=== PATIENT | female | born 1930 | race Caucasian/White ===

== ENCOUNTER 2016-12-06 22:08 | Inpatient (IN) | payer OTHER ==
[~2016-12-06] VITALS: Ht 162.6 cm; Wt 62.9 kg
[~2016-12-06 22:08] MED LIST: ASPIR 8181 M1 PO; ASPIRIN81 M2 PO; BACK & BODY PA1 EACH PO; CALCIUM 600 MG1 EACH PO; CELECOXIB200 MG PO; COREG6.25 M1 PO; ENDOCET 5-3251 EACH PO; IRON325 MG PO; LIDOCAINE700 MG TD; LOVENOX40 MG/0.4 SC; METFORMIN HCL500 MG PO; MULTIPLE VITAM1 EACH PO; PROTONIX40 MG PO; ZOCOR10 MG PO
[2016-12-07 07:33] VITALS: BP 177/80
[2016-12-07 08:00] LABS: POINT-OF-CARE METER ID UU14174212
[2016-12-07 11:19] LABS: POINT-OF-CARE METER ID UU13113675
[2016-12-07 13:22] LABS: HEMATOCRIT 37.9 % (36.0-46.0); MCH 28.8 PG (29.0-34.0); MCHC 31.4 G/DL (30.0-36.0); MCV 91.8 FL (83-99); MEAN PLAT.VOLUME 10.8 uM^3 (9.5-12.4); PLATELET COUNT 187 K/uL (156-360); RBC DIS.WIDTH-CV 14.2 % (11.8-14.6); RBC DIS.WIDTH-SD 47.9 % (39-53); RED BLOOD COUNT 4.13 M/uL (3.80-5.20); WHITE BLOOD COUNT 4.5 K/uL (4.1-10.2)
[2016-12-07 16:25] VITALS: BP 128/74
[2016-12-07 16:32] LABS: POINT-OF-CARE METER ID UU13113712
[2016-12-07 19:56] VITALS: BP 127/72
[2016-12-07 21:23] LABS: POINT-OF-CARE METER ID UU13113712
[2016-12-08 00:07] VITALS: BP 169/73
[2016-12-08 04:15] VITALS: BP 160/76
[2016-12-08 07:03] LABS: HEMATOCRIT 40.5 % (36.0-46.0); MCV 91.4 FL (83-99)
[2016-12-08 07:27] LABS: ANION GAP 12 MEQ/L (2-14); CHLORIDE 94 MEQ/L (99-109); GFR ESTIMATE (CALCULATED) 56 mL/min/; GLUCOSE 201 mg/dL (70-99); SAMPLE HEMOLYSIS CHECK 0; SAMPLE ICTERIC CHECK 0; SAMPLE LIPEMIA CHECK 0; SODIUM 131 MEQ/L (136-147); UREA NITROGEN (BUN) 19 mg/dL (9-23)
[2016-12-08 07:43] LABS: POINT-OF-CARE METER ID UU13113712
[2016-12-08 07:44] VITALS: BP 122/80
[2016-12-08 12:01] VITALS: BP 165/74
[2016-12-08 12:11] LABS: POINT-OF-CARE METER ID UU13113712
[2016-12-08 15:36] VITALS: BP 132/58
[2016-12-08 16:34] LABS: POINT-OF-CARE METER ID UU13113712
[2016-12-08 20:22] VITALS: BP 173/77
[2016-12-08 21:49] LABS: POINT-OF-CARE METER ID UU13113712
[2016-12-09 00:05] VITALS: BP 176/77
[2016-12-09 04:03] VITALS: BP 134/62
[2016-12-09 04:52] LABS: HEMATOCRIT 32.4 % (36.0-46.0); MCV 88.5 FL (83-99)
[2016-12-09 05:02] LABS: CHLORIDE 100 mEq/L (99-109); POTASSIUM 4.3 mEq/L (3.7-5.4); SODIUM 131 mEq/L (136-147)
[2016-12-09 05:03] LABS: GLUCOSE 189 mg/dL (70-99)
[2016-12-09 05:05] LABS: ANION GAP 11 MEQ/L (2-14)
[2016-12-09 05:07] LABS: GFR ESTIMATE (CALCULATED) > 59 mL/min/
[2016-12-09 05:08] LABS: UREA NITROGEN (BUN) 22 mg/dL (9-23)
[2016-12-09 07:25] LABS: POINT-OF-CARE METER ID UU13113712
[2016-12-09] MEDS ORDERED: ENDOCET 5-3251 EACH PO (08:05)
[2016-12-09] MEDS ORDERED: LOVENOX40 MG/0.4 SC (08:05)
[2016-12-09 08:18] VITALS: BP 140/60
[2016-12-09 11:39] VITALS: BP 153/69
[2016-12-09 11:41] LABS: POINT-OF-CARE METER ID UU13113712
== END 2016-12-09 14:50 | DRG 470 ==
LOC: ENRESERV 22:08 → 2SOUTH 12-07 06:44 → 3WEST 12-07 06:44 → 2SOUTH 12-07 08:37 → 3WEST 12-07 15:53
PROVIDERS: Orthopaedic Surgery; Physician Assistant
PROC: 0SRD0J9 Replacement of Left Knee Joint with Synthetic Substitute, Cemented, Open Approach (ICD-10-PCS; principal; 2016-12-07)
DX: M17.12 Unilateral primary osteoarthritis, left knee (principal); E87.1 Hypo-osmolality and hyponatremia; I10 Essential (primary) hypertension; E11.9 Type 2 diabetes mellitus without complications; K21.9 Gastro-esophageal reflux disease without esophagitis; E78.00 Pure hypercholesterolemia, unspecified; Z96.651 Presence of right artificial knee joint
CPT/HCPCS: 73560; 80048; 82948; 85014; 85018; 85027; C1713; J0360; J0690; J1170; J1650; J1815; J2405; J3010; J7050